=== PATIENT | male | born 1955 ===

== ENCOUNTER 2025-08-25 10:21 | Outpatient (CLI) | payer MEDICARE, OTHER ==
[2025-08-25 10:47] LABS: Estimated GFR - POC 72.0
== END 2025-08-25 10:22 | disposition home or self-care (01) ==
LOC: SCSMRI 10:21
PROVIDERS: ATTEND Internal Medicine Cardiovascular Disease
DX: R51.9 Headache, unspecified (principal)
CPT/HCPCS: 36415; 70553; 76376; 82565